=== PATIENT | female | born 1955 | race Caucasian/White ===

== ENCOUNTER 2018-01-31 12:41 | Day surgery (SDC) | payer BC ==
[~2018-01-31] VITALS: Ht 167.6 cm; Wt 64.0 kg
[~2018-01-31 12:41] MED LIST: AMOX875 PO; BLOOD PRESSURE MED; CHOLESTEROL MED; CITA20 PO
[2018-01-31] MEDS ORDERED: CITA20 (13:23)
[2018-01-31] MEDS ORDERED: AMLO5 (13:23)
[2018-01-31] MEDS ORDERED: ATOR20 (13:23)
== END 2018-01-31 15:08 | disposition home or self-care (01) ==
LOC: ORSCSDS 12:41
PROVIDERS: Internal Medicine Gastroenterology
PROC: 0DB58ZX Excision of Esophagus, Via Natural or Artificial Opening Endoscopic, Diagnostic (ICD-10-PCS; principal; 2018-01-31 14:00)
PROC: 0DB68ZX Excision of Stomach, Via Natural or Artificial Opening Endoscopic, Diagnostic (ICD-10-PCS; principal; 2018-01-31 14:00)
PROC: 0D758ZZ Dilation of Esophagus, Via Natural or Artificial Opening Endoscopic (ICD-10-PCS; principal; 2018-01-31 14:00)
DX: R13.14 Dysphagia, pharyngoesophageal phase (principal); K22.10 Ulcer of esophagus without bleeding; K29.70 Gastritis, unspecified, without bleeding; K44.9 Diaphragmatic hernia without obstruction or gangrene; K21.0 Gastro-esophageal reflux disease with esophagitis; Z87.891 Personal history of nicotine dependence; Z79.899 Other long term (current) drug therapy
CPT/HCPCS: 87081; 88305

== ENCOUNTER 2019-10-04 07:36 | Day surgery (SDC) | payer MEDICARE, BC ==
[~2019-10-04] VITALS: Ht 167.6 cm; Wt 66.8 kg
[~2019-10-04 07:36] MED LIST changes: +ALEN70; +AMLO5; +ATOR20; +CITA20
== END 2019-10-04 09:48 | disposition home or self-care (01) ==
LOC: ORSCSDS 07:36
PROVIDERS: Internal Medicine Gastroenterology
PROC: 0DJD8ZZ Inspection of Lower Intestinal Tract, Via Natural or Artificial Opening Endoscopic (ICD-10-PCS; principal; 2019-10-04 09:00)
DX: Z12.11 Encounter for screening for malignant neoplasm of colon (principal); K57.30 Diverticulosis of large intestine without perforation or abscess without bleeding; I10 Essential (primary) hypertension; Z87.891 Personal history of nicotine dependence; Z79.899 Other long term (current) drug therapy
CPT/HCPCS: J2405; J2704; J7120

== ENCOUNTER 2020-05-23 17:39 | Inpatient (IN) | payer MEDICARE ==
[~2020-05-23] VITALS: Ht 167.6 cm; Wt 63.5 kg
[~2020-05-23 17:39] MED LIST changes: -CITA20; +Crutch1 EACH MISC; +Percocet 5-3251 EACH PO
[2020-05-23 18:36] LABS: Alanine Aminotransfer (ALT/SGP 14 U/L (12-78); Albumin, Blood 3.5 g/dL (3.4-5.0); Albumin/Globulin Ratio 0.8 (0.8-1.8); Alk Phos 66 U/L (50-136); Anion Gap 8 mmol/L (6-16); Aspartate Aminotrans (AST/SGOT 9 U/L (12-37); Bilirubin, Total 0.3 mg/dL (0.1-1.0); Blood Urea Nitrogen 8 mg/dL (8-24); Bun/Creatinine Ratio 13.3 (12.0-20.0); CO2, Blood 24 mmol/L (21-32); Calcium, Blood 9.4 mg/dL (8.5-10.1); Chloride, Blood 107 mmol/L (98-108); Globulin, Blood 4.6 g/dL (2.2-4.0); Glomerular Filtration Rate >60 (60-); Glucose, Blood 92 mg/dL (70-99); Sodium, Blood 139 mmol/L (136-145); Total Protein, Blood 8.1 g/dL (6.4-8.2)
--- NOTE | 2020-05-23 22:55 | NUR ---
ARRIVES TO ROOM VIA GURNEY FROM ED FOR APPENDICITIS WITH ABSCESS. PT A/O/I AMBULATES TO BATHROOM. DENIES ANY PAIN OR N/V. COVID WAS DONE IN ER. SURGICAL PACKET ON CHART. REVIEWED ORDERES. NO FURTHER QUESTIONS OR CONCERNS AT THIS TIME.
[2020-05-23] MEDS ORDERED: METO25ER PO (23:30)
--- NOTE | 2020-05-24 02:58 | NUR ---
Report received from Hattie PEACE. Patient is resting well without complaints of pain or discomfort. Call light in reach.
[2020-05-24] MEDS ORDERED: ALEN70 PO (09:40)
--- NOTE | 2020-05-24 17:25 | NUR ---
SUMMARY NO ACUTE CHANGES T/O SHIFT. MEDICATED PT THIS AM W/IBUPROFEN PER ORDERS FOR CONROY AND 3/10 RLQ PAIN. PT REPORTED CONROY RESOLVED AND RLQ CURRENTLY AT 1/10 ON PAIN SCALE. INDEPENDENT IN ROOM. TOLERATING REGULAR DIET. ABX INFUSING PER ORDERS. CALL LIGHT IN REACH.
--- NOTE | 2020-05-24 22:58 | NUR ---
ASSUMED CARE AT THIS TIME. RECIEVED REPORT FROM NURSE RICARDO. PATIENT IS RESTING COMFORTABLY IN BED AT THIS TIME. CALL LIGHT IS WITHIN REACH.
--- NOTE | 2020-05-25 04:30 | NUR ---
SHIFT SUMMARY: ACUTE APPENDICITIS WITH PERIAPPENDICEAL ABSCESS PATIENT IS ALERT AND ORIENTED X4 THROUGHOUT SHIFT. SHE HAS NOT REQUIRED ANY PAIN MEDICATIONS DURING SHIFT. VITALS ARE WNL AND IS ON ROOM AIR. SHE IS INDEPENDANT IN THE ROOM. SHE TOLERATED DINNER LAST NIGHT BEFORE SHIFT CHANGE. ANTIBIOTICS HAVE BEEN INFUSING PER ORDERS. CALLS APPROPRIATELY. CALL LIGHT WITHIN REACH. SHE IS CURRENTLY SLEEPING IN BED.
[2020-05-25 13:47] LABS: BASOPHILS ABSOLUTE AUTO 0.07 K/mm3 (0.00-0.23); BASOPHILS PERCENT AUTO 1 % (0-2); EOSINOPHILS PERCENT AUTO 0 % (0-6); Hematocrit 34.9 % (33.0-51.0); Hemoglobin 11.5 g/dL (11.5-16.0); IMMATURE GRAN ABSOLUTE AUTO 0.05 K/mm3 (0.00-0.10); IMMATURE GRAN PERCENT AUTO 0 % (0-1); LYMPHOCYTES PERCENT AUTO 21 % (21-46); MONOCYTES ABSOLUTE AUTO 0.86 K/mm3 (0.16-1.47); MONOCYTES PERCENT AUTO 7 % (4-13); Mean Corpuscular HGB 30.4 pg (26.0-34.0); Mean Corpuscular Volume 92 fL (80-100); Mean Platelet Volume 10.2 fL (9.1-12.4); NEUTROPHILS ABSOLUTE AUTO 8.72 K/mm3 (1.96-9.15); NEUTROPHILS PERCENT AUTO 71 % (41-73); Platelet Count 456 K/mm3 (150-400); RDW Standard Deviation 40.4 fL (35.1-46.3); Red Blood Cell Count 3.78 M/mm3 (3.80-5.20)
--- NOTE | 2020-05-25 17:29 | NUR ---
SHIFT SUMMARY PT A0X4. VSS. PT IS HERE FOR PERFORATED APPY WITH ABCESS. REPEAT CT IS ORDERED FOR TOMORROW. PT'S MINIMAL PAIN IS WELL CONTROLLED. SHE ONLY TOOK 1 IBUPROFEN FOR PAIN THIS MORNING. PT DENIES DISCOMFORT ALL THROUGHOUT THE DAY. PT IS DENIES CHEST PAIN/PRESSURE, SOB, NUMBNESS, DIZZINESS AND NO TINGLING SENSATION. SHE IS INDEPENDT, AND REGULAR DIET IS WELL TOLERATED. PT DENIES NAUSEA AND VOMITING. PT HAS BEEN PASSING FLATUS. CONTINOUS IV ZOSYN IS BEING ADMINSTERED FOR ANTIBIOTIC TREATMENT. SHE HAS AN ADEQUATE URINE OUTPUT. PLAN: CONTINOUS ANTIBIOTIC TREATMENT AND CT SCAN TOMORROW.
[2020-05-26 05:38] LABS: BASOPHILS ABSOLUTE AUTO 0.07 K/mm3 (0.00-0.23); BASOPHILS PERCENT AUTO 1 % (0-2); EOSINOPHILS ABSOLUTE AUTO 0.01 K/mm3 (0.00-0.68); EOSINOPHILS PERCENT AUTO 0 % (0-6); Hematocrit 34.8 % (33.0-51.0); Hemoglobin 11.1 g/dL (11.5-16.0); IMMATURE GRAN ABSOLUTE AUTO 0.06 K/mm3 (0.00-0.10); IMMATURE GRAN PERCENT AUTO 1 % (0-1); LYMPHOCYTES ABSOLUTE AUTO 2.31 K/mm3 (0.84-5.20); LYMPHOCYTES PERCENT AUTO 25 % (21-46); MONOCYTES ABSOLUTE AUTO 0.71 K/mm3 (0.16-1.47); MONOCYTES PERCENT AUTO 8 % (4-13); Mean Corpuscular HGB 29.8 pg (26.0-34.0); Mean Corpuscular HGB Conc 31.9 g/dL (31.5-36.5); Mean Corpuscular Volume 93 fL (80-100); Mean Platelet Volume 10.1 fL (9.1-12.4); NEUTROPHILS PERCENT AUTO 66 % (41-73); Platelet Count 446 K/mm3 (150-400); RDW Coefficient Variation 11.9 % (11.7-14.2); RDW Standard Deviation 41.1 fL (35.1-46.3); Red Blood Cell Count 3.73 M/mm3 (3.80-5.20); White Blood Cell Count 9.36 K/mm3 (4.00-11.30)
--- NOTE | 2020-05-26 06:15 | NUR ---
PT VSS T/O NIGHT. PT REP FAYE AMA RLQ TOLERABLE, DECLINED NEED FOR PAIN MEDS. PT HAD NO N/V, BT HYPO THIS AM, PT PASSING FLATUS, NO BM THIS SHIFT. PT UP INDEP IN ROOM, IS USING CALL LIGHT FOR ASSISTANCE. ABX CONT PER ORDERS.
--- NOTE | 2020-05-26 18:08 | NUR ---
SHIFT SUMMARY PT AOX4. VSS. PT HAD A REPEAT CT SCAN TODAY. CT FINDINGS REPORTS DECREASE ABCESS SIZE. PT WILL CONTINUE 1 MORE DAY OF IV ANTIBIOTICS BEFORE TRANSITION TO ORAL BEFORE DISCHARGE TO HOME. PT DENIES CHEST PAIN/PRESSURE, SOB, NUMBNESS AND NO TINGLING. PT HAS BEEN PASSING FLATUS. PT TOLERATING PO INTAKE, DENIES NAUSEA AND VOMITING. PT STS PAIN IS VERY MILD AND DULL ON RLQ. WBC IS IMPROVED AND WNL.
--- NOTE | 2020-05-27 05:14 | NUR ---
SHIFT SUMMARY: ACUTE APPENDICITIS WITH PERIAPPENDICEAL ABCESS -NON-SURGICAL PT HAS BEEN A&OX4 THROUGHOUT SHIFT. VITALS HAVE BEEN WNL. CT SCAN YESTERDAY SHOWED DECREASE IN ABCESS SIZE. PT REPORTS NO PAIN IN PUBIC AREA ANYMORE, STOMACH IS NOT TENDER WHAT IT WAS BEFORE, AND HAS BEEN ABLE TO HAVE A SMALL BM DURING SHIFT. SHE HAS BEEN ABLE TO PASS FLATUS AND IS VOIDING. PT IS CURRENTLY SLEEPING IN BED. CALL LIGHT WITHIN REACH. PLAN IS FOR HER TO FINISH UP IV ABX, SWITCH TO ORAL ABX, AND D/C HOME.
[2020-05-27] MEDS ORDERED: AMOCLA500 PO (11:47)
--- NOTE | 2020-05-27 12:11 | NUR ---
DISCHARGE NOTE PT DISCHARGED HOME @ 1203, AMBULATING, VOIDING, PASSING FLATUS/BM, IV DC'D, PROVIDED EDUCATION ON HOME CARE AND NEW MEDICATION, PT STATES SHE HAS NO QUESTIONS, PROVIDED SURGICAL FLOOR NURSES DESK AND DR FOOTE PHONE NUMBER FOR QUESTIONS/CONCERNS IF ANY ARISE. PT LEFT FLOOR VIA WC TO GO HOME W/ FAMILY MEMBER.
== END 2020-05-27 12:03 | disposition home or self-care (01) | DRG 373 ==
LOC: ER 17:39 → SURS 17:40
PROVIDERS: Physician Assistant; ADMIT Surgery
DX: K35.33 Acute appendicitis with perforation, localized peritonitis, and gangrene, with abscess (principal); Z20.828 Contact with and (suspected) exposure to other viral communicable diseases; Z87.891 Personal history of nicotine dependence; Z79.83 Long term (current) use of bisphosphonates
CPT/HCPCS: 36415; 74177; 80053; 85025; 96365-59; 96375; 99285-25; J1650; J2405; J2543; J7030; Q9967; U0003

== ENCOUNTER 2023-01-19 13:54 | Inpatient (IN) | payer OTHER ==
[~2023-01-19] VITALS: Ht 165.1 cm; Wt 60.0 kg
[~2023-01-19 13:54] MED LIST changes: +ALEN70 PO; +AMOCLA500 PO; +METO25ER PO
[2023-01-19 15:18] LABS: BASOPHILS ABSOLUTE AUTO 0.04 K/mm3 (0.00-0.23); BASOPHILS PERCENT AUTO 0 % (0-2); EOSINOPHILS PERCENT AUTO 0 % (0-6); Hematocrit 40.5 % (33.0-51.0); Hemoglobin 14.2 g/dL (11.5-16.0); IMMATURE GRAN ABSOLUTE AUTO 0.03 K/mm3 (0.00-0.10); IMMATURE GRAN PERCENT AUTO 0 % (0-1); LYMPHOCYTES ABSOLUTE AUTO 0.81 K/mm3 (0.84-5.20); LYMPHOCYTES PERCENT AUTO 8 % (21-46); MONOCYTES ABSOLUTE AUTO 0.62 K/mm3 (0.16-1.47); MONOCYTES PERCENT AUTO 6 % (4-13); Mean Corpuscular HGB 32.9 pg (26.0-34.0); Mean Corpuscular HGB Conc 35.1 g/dL (31.5-36.5); Mean Corpuscular Volume 94 fL (80-100); Mean Platelet Volume 9.9 fL (9.1-12.4); NEUTROPHILS ABSOLUTE AUTO 8.55 K/mm3 (1.96-9.15); NEUTROPHILS PERCENT AUTO 85 % (41-73); Platelet Count 342 K/mm3 (150-400); RDW Coefficient Variation 11.9 % (11.7-14.2); RDW Standard Deviation 41.1 fL (35.1-46.3); Red Blood Cell Count 4.31 M/mm3 (3.80-5.20); White Blood Cell Count 10.05 K/mm3 (4.00-11.30)
[2023-01-19 15:35] LABS: Albumin, Blood 4.2 g/dL (3.4-5.0); Albumin/Globulin Ratio 1.1 (0.8-1.8); Bilirubin, Total 0.4 mg/dL (0.1-1.0); Bun/Creatinine Ratio 14.6 (12.0-20.0); Calcium, Blood 9.5 mg/dL (8.5-10.1); Creatinine, Blood 1.03 mg/dL (0.40-1.00); Globulin, Blood 3.8 g/dL (2.2-4.0); Potassium, Blood 3.9 mmol/L (3.5-5.5)
[2023-01-19 18:32] VITALS: BP 135/80
[2023-01-19 18:40] VITALS: BP 135/80
--- NOTE | 2023-01-19 19:25 | NUR ---
SHIFT SUMMARY PT BROUGHT UP TO THE FLOOR FROM ER AND SETTLED INTO HER ROOM, REPORTS SOME PAIN IN R HIP AND WAS MEDICATED PER EMAR. CONFIRMED ORTHO CONSULT AND PLAN FOR OR IN THE MORNING. PT UPDATED ON PLAN OF CARE. REPORT GIVEN TO NAWAF PEACE.
[2023-01-19 20:01] VITALS: BP 130/82
[2023-01-20] VITALS (20 sets, daily range): BP systolic 117–157; BP diastolic 69–102
--- NOTE | 2023-01-20 02:36 | NUR ---
RETENTION PT HAS 500 MLS IN HER BLADDER, PT UNABLE TO VOID DESPITE ATTEMPTS. PUREWICK SUCTION CANNISTER IS DRY. DR. DIEHL CALLED AND NOTIFIED. BENNETT CATHETER ORDERED.
--- NOTE | 2023-01-20 02:57 | NUR ---
MUSICAL INSTRUMENT MECHANIC preformed bladder scan the results were 500 RN notified
[2023-01-20 03:21] LABS: Source, Urine Foley catheter
[2023-01-20 03:32] LABS: Appearance, Urine Hazy (Clear); Bilirubin, Urine Neg (Neg); Blood, Urine 2+ (Neg); Glucose Qualitative, Urine Neg (Neg); Ketones, Urine 1+ (Neg); Leukocyte Esterase, Urine Neg (Neg); Nitrite, Urine Neg (Neg); Protein, Urine 2+ (Neg); Specific Gravity, Urine 1.015 (1.003-1.022); Urobilinogen, Urine NORM (Normal)
[2023-01-20 03:43] LABS: Bacteria Mod /hpf; Color, Urine Yellow (P-Yellow); Squamous Epithelial Cells Few /hpf (Few)
[2023-01-20 03:44] LABS: Hyaline Casts 0-2 /lpf (0-2)
[2023-01-20 05:08] LABS: BASOPHILS ABSOLUTE AUTO 0.04 K/mm3 (0.00-0.23); BASOPHILS PERCENT AUTO 0 % (0-2); EOSINOPHILS ABSOLUTE AUTO 0.05 K/mm3 (0.00-0.68); EOSINOPHILS PERCENT AUTO 1 % (0-6); Hematocrit 37.6 % (33.0-51.0); IMMATURE GRAN ABSOLUTE AUTO 0.04 K/mm3 (0.00-0.10); IMMATURE GRAN PERCENT AUTO 0 % (0-1); LYMPHOCYTES ABSOLUTE AUTO 0.79 K/mm3 (0.84-5.20); LYMPHOCYTES PERCENT AUTO 7 % (21-46); MONOCYTES ABSOLUTE AUTO 0.76 K/mm3 (0.16-1.47); MONOCYTES PERCENT AUTO 7 % (4-13); Mean Corpuscular HGB 32.7 pg (26.0-34.0); Mean Corpuscular HGB Conc 34.6 g/dL (31.5-36.5); Mean Corpuscular Volume 95 fL (80-100); Mean Platelet Volume 10.2 fL (9.1-12.4); NEUTROPHILS ABSOLUTE AUTO 9.05 K/mm3 (1.96-9.15); NEUTROPHILS PERCENT AUTO 84 % (41-73); Platelet Count 324 K/mm3 (150-400); RDW Coefficient Variation 11.9 % (11.7-14.2); RDW Standard Deviation 41.4 fL (35.1-46.3); Red Blood Cell Count 3.97 M/mm3 (3.80-5.20); White Blood Cell Count 10.73 K/mm3 (4.00-11.30)
--- NOTE | 2023-01-20 05:09 | NUR ---
SHIFT SUMMARY PT HAS RESTED OFF AND ON T/O THE NIGHT. PAIN IN R HIP RELIEVED WITH MEDS PER EMAR. BENNETT CATHETER INSERTED FOR URINARY RETENTION AND 600 MLS OF YELLOW URINE OBTAINED, SPECIMEN COLLECTED FOR UA. PT HAS HAD THREE LIQUID BOWEL MOVEMENTS THIS SHIFT. SHE DENIES ABD PAIN, CRAMPING OR NAUSEA. VITALS ARE STABLE. PLAN IS FOR OR TODAY, PT HAS BEEN NPO SINCE MIDNIGHT, BED IN LOWEST POSITION, CALL LIGHT WITHIN REACH.
[2023-01-20 05:21] LABS: International Normalized Ratio 0.94; Prothrombin Time Results 9.9 Sec (9.7-11.5)
[2023-01-20 05:32] LABS: Bun/Creatinine Ratio 16.9 (12.0-20.0); Calcium, Blood 9.3 mg/dL (8.5-10.1); Creatinine, Blood 1.18 mg/dL (0.40-1.00); Magnesium, Blood 2.2 mg/dL (1.6-2.4); Potassium, Blood 3.6 mmol/L (3.5-5.5)
--- NOTE | 2023-01-20 13:19 | NUR ---
Pt. is awake in bed and welcomes my visit. Pt. is pleasant, but is looking forward to having her hip surgery this afternoon. Facilitate a life review and establish rapport with the Pt. Listen with empathy and calming presence. Pt. displays evidence of trust and engagement. Prayed with Pt. Pt. verbalized gratitude for the spiritual care visit.
--- NOTE | 2023-01-20 13:37 | NUR ---
PT TAKEN TO DAY SURGERY AT APPROXIMATELY 1330.
--- NOTE | 2023-01-20 13:44 | NUR ---
THE PATIENT WAS BROUGHT TO DAY SURGERY FOR HER PROCEDURE.
--- NOTE | 2023-01-20 20:01 | NUR ---
PT ARRIVED BACK TO THE ROOM AT APPROXIMATELY 1800. PAIN MANAGED UPON ARRIVAL BACK TO THE ROOM. INCISION SITE WNL. PT ALERT, ORIENTED AND IN GOOD SPIRITS. PT MOVING ALL EXTREMITIES WELL. PT DENIES N/T.
--- NOTE | 2023-01-20 20:03 | NUR ---
SHIFT SUMMARY PT IS POD#0 FROM R FANY WITH DR. NUÑEZ. PAIN MANAGED POST OP WITHOUT NEED FOR PAIN MEDICATION. PT TOLERATING PO. REPORT GIVEN TO NAWAF PEACE.
[2023-01-21 02:25] VITALS: BP 130/72
--- NOTE | 2023-01-21 05:55 | NUR ---
SHIFT SUMMARY PT POD 0 RIGHT TOTAL HIP, SHE HAS DONE WELL OVERNIGHT. PT TOLERATING PO INTAKE, ADEQUATE URINE OUTPUT. PT DENIES PAIN T/O SHIFT AND DECLINES SCHEDULED TYLENOL. PT ABLE TO WIGGLE TOES AND DENIES N/T IN EXT. VITALS ARE STABLE. SURGICAL SITE DRESSING C/D/I. NO OTHER CHANGES OVERNIGHT. BED IN LOWEST POSITION, CALL LIGHT WITHIN REACH.
[2023-01-21 06:59] VITALS: BP 140/85
--- NOTE | 2023-01-21 14:24 | NUR ---
01/21/23 1424 Alexus Hector VERIFICATIONS: EDIT CHART.
[2023-01-21] MEDS ORDERED: OXYC5 PO ×2 (14:41→15:20)
[2023-01-21] MEDS ORDERED: Acetaminophen650 M1 PO (14:41)
[2023-01-21] MEDS ORDERED: ASPI81CH PO (14:42)
[2023-01-21] MEDS ORDERED: ASPIR 8181 M1 PO (15:20)
[2023-01-21 16:32] VITALS: BP 135/75
--- NOTE | 2023-01-21 16:49 | NUR ---
DISCHARGE PT PROVIDED WITH WRITTEN AND VERBAL DISCHARGE INSTRUCTIONS; SHE REPORTED UNDERSTANDING. PT MET ALL GOALS PRIOR TO DISCHARGE: TOLERATING PO, PAIN MANAGED, PT CLEARED THERAPY AND SHE WAS ABLE TO VOID AFTER BENNETT CATH WAS REMOVED THIS AM. AQUACEL DRESSING SENT HOME WITH PATIENT AND PT EDUCATED TO USE IF INCISION BEGINS TO DRAIN. PAIN MANAGED AT TIME OF DISCHARGE. VSS. PT ESCORTED OUT IN A W/C AT 1645.
== END 2023-01-21 16:45 | disposition home or self-care (01) | DRG 522 ==
LOC: ER 13:54 → SURS 13:55 → ER 13:55 → SURS 17:14
PROVIDERS: Internal Medicine; Orthopaedic Surgery; Physician Assistant; ADMIT Family Medicine
PROC: 0SR904A Replacement of Right Hip Joint with Ceramic on Polyethylene Synthetic Substitute, Uncemented, Open Approach (ICD-10-PCS; principal; 2023-01-20 14:30)
DX: S72.001A Fracture of unspecified part of neck of right femur, initial encounter for closed fracture (principal); M81.0 Age-related osteoporosis without current pathological fracture; I10 Essential (primary) hypertension; E78.5 Hyperlipidemia, unspecified; F41.8 Other specified anxiety disorders; W01.0XXA Fall on same level from slipping, tripping and stumbling without subsequent striking against object, initial encounter; Z79.2 Long term (current) use of antibiotics; Z98.890 Other specified postprocedural states; Z79.899 Other long term (current) drug therapy; Z79.02 Long term (current) use of antithrombotics/antiplatelets; Z87.891 Personal history of nicotine dependence
CPT/HCPCS: 36415; 72170; 73502; 80048; 80053; 81001; 83735; 85025; 85610; 93005; 93010; 96374; 96375; 97110; 97116; 97162; 97165; 97530; 99284-25; A9270; C1776; J0690; J1100; J1650; J1885; J2405; J2704; J3010; J7120

== ENCOUNTER 2023-03-16 14:05 | Day surgery (SDC) | payer OTHER ==
[~2023-03-16] VITALS: Ht 167.6 cm; Wt 55.4 kg
[~2023-03-16 14:05] MED LIST changes: +ASPI81CH PO; +ASPIR 8181 M1 PO; +Acetaminophen650 M1 PO; +OXYC5 PO
--- NOTE | 2023-03-16 14:42 | NUR ---
03/16/23 1442 Gilma Galaviz TETRACAINE TO LEFT EYE AT 1439 PLEDGET TO LEFT EYE AT 1140 BY [email or web address]
[2023-03-16 16:04] VITALS: BP 136/89
--- NOTE | 2023-03-16 16:23 | NUR ---
03/16/23 1623 Dustin Mcknight IV REMOVED INTACT. SITE WNL. PT INSTRUCTED TO FOLLOW UP WITH PCP IMMEDIATELY REGARDING GROWTH ON NECK, PER DR. TOMAS ORDERS.
== END 2023-03-16 16:20 | disposition home or self-care (01) ==
LOC: ORSCSDS 14:05
PROVIDERS: Ophthalmology
PROC: 08RK3JZ Replacement of Left Lens with Synthetic Substitute, Percutaneous Approach (ICD-10-PCS; principal; 2023-03-16 15:30)
DX: H25.13 Age-related nuclear cataract, bilateral (principal); I10 Essential (primary) hypertension; Z87.891 Personal history of nicotine dependence; K21.9 Gastro-esophageal reflux disease without esophagitis; Z79.899 Other long term (current) drug therapy
CPT/HCPCS: J2250; J3010; J3301; J7040; V2632

== ENCOUNTER 2023-03-23 14:08 | Day surgery (SDC) | payer MEDICARE ==
[~2023-03-23] VITALS: Ht 167.6 cm; Wt 55.8 kg
--- NOTE | 2023-03-23 14:57 | NUR ---
03/23/23 1457 Gilma Galaviz TETRACAINE TO RIGHT EYE AT 1456 PLEDGET TO RIGHT EYE AT 1457 BY [email or web address]
[2023-03-23 16:05] VITALS: BP 117/83
== END 2023-03-23 16:22 | disposition home or self-care (01) ==
LOC: ORSCSDS 14:08
PROVIDERS: Ophthalmology
PROC: 08RJ3JZ Replacement of Right Lens with Synthetic Substitute, Percutaneous Approach (ICD-10-PCS; principal; 2023-03-23 15:30)
DX: H25.11 Age-related nuclear cataract, right eye (principal); Z96.1 Presence of intraocular lens; K21.9 Gastro-esophageal reflux disease without esophagitis; Z87.891 Personal history of nicotine dependence; Z79.899 Other long term (current) drug therapy
CPT/HCPCS: J2250; J2704; J3301; J7040; V2632

== ENCOUNTER 2023-04-07 09:07 | Day surgery (SDC) | payer MEDICARE ==
[~2023-04-07] VITALS: Ht 167.6 cm; Wt 55.4 kg
--- NOTE | 2023-04-07 10:47 | NUR ---
04/07/23 1047 Annalise Jackson USED TO SOAK PLEDGETS FOR USE BY DR GAY AT THE [facility].
[2023-04-07 11:14] VITALS: BP 127/76
== END 2023-04-07 11:36 | disposition home or self-care (01) ==
LOC: ORSCSDS 09:07
PROVIDERS: Otolaryngology
PROC: 0CJS8ZZ Inspection of Larynx, Via Natural or Artificial Opening Endoscopic (ICD-10-PCS; principal; 2023-04-07 11:00)
DX: J38.7 Other diseases of larynx (principal); I10 Essential (primary) hypertension; Z87.891 Personal history of nicotine dependence; Z79.899 Other long term (current) drug therapy
CPT/HCPCS: A9270; J0330; J1100; J2250; J2405; J2704; J3010

== ENCOUNTER 2023-05-12 09:42 | Day surgery (SDC) | payer MEDICARE ==
[~2023-05-12] VITALS: Ht 167.6 cm; Wt 56.0 kg
--- NOTE | 2023-05-12 10:16 | NUR ---
05/12/23 1016 Ciera Lao PT COMFORTABLE IN BED. CALL LIGHT WITHIN REACH. NO QUESTIONS OR CONCERNS
--- NOTE | 2023-05-12 11:14 | NUR ---
05/12/23 1114 Flakita Salgado ARMS TUCKED AT SIDE, PILLOW UNDER KNEES, HEAD ON DONUT, SHOULDER ROLL IN PLACE.
[2023-05-12 13:04] VITALS: BP 146/91
--- NOTE | 2023-05-12 13:33 | NUR ---
05/12/23 1333 ARABELLA HEATH PT DRESSING WAS CDI. PT C/O HEADACHE AND SORE THROAT WHEN PRESSED TO GIVE A NUMBER 0-10 SHE SAID HER PAIN WAS 5/10 BUT DIDNT NEED ANY PAIN MEDS UNTIL SHE GOT HOME. PT WAS GIVEN ZOFRAN 4MG IV FOR NAUSEA THAT SHE COMPLAINED OF EVERYTIME SHE MOVED EVEN AFTER GIVEN.
== END 2023-05-12 13:30 | disposition home or self-care (01) ==
LOC: ORSCSDS 09:42
PROVIDERS: Otolaryngology
PROC: 0FB80ZX Excision of Cystic Duct, Open Approach, Diagnostic (ICD-10-PCS; principal; 2023-05-12 11:30)
DX: Q89.2 Congenital malformations of other endocrine glands (principal); E78.5 Hyperlipidemia, unspecified; Z87.891 Personal history of nicotine dependence; Z79.899 Other long term (current) drug therapy
CPT/HCPCS: 88305; J1100; J2405; J2704; J3010; J7120

== ENCOUNTER → 2025-02-05 | Outpatient (CLI) | payer MEDICARE | LOC: LAB SHORT 11:12 → LAB 11:12 | DX: N39.0 Urinary tract infection, site not specified (principal) | CPT/HCPCS: 87077; 87086; 87186 ==